=== PATIENT | female | born 1970 | race Caucasian/White ===

== ENCOUNTER 2018-04-05 11:58 | Outpatient (CLI) | payer OTHER, SELFPAY ==
--- NOTE | 2018-04-05 10:25 | DI.RAD_ITS ---
SYMPTOM/DIAGNOSIS: RT FOOT PAIN, M79.671, POSTERIOR HEEL PAIN RIGHT FOOT: Three views. No bone or joint abnormality is identified. There are small spurs seen at the posterior calcaneus. No radiopaque foreign bodies are seen in the soft tissues. IMPRESSION: Small calcaneal spurs.
== END 2018-04-05 12:18 ==
PROVIDERS: PCP Nurse Practitioner Family; Visit Provider Podiatrist Foot & Ankle Surgery
DX: M79.671 Pain in right foot (principal); M77.31 Calcaneal spur, right foot
CPT/HCPCS: 73630

== ENCOUNTER 2019-01-15 15:48 | Outpatient (REF) | payer OTHER, SELFPAY ==
[2019-01-15 18:25] LABS: ALT 45 U/L (12-78); AST 31 U/L (15-37); Albumin 3.9 g/dL (3.4-5.0); Alkaline Phosphatase 76 U/L (46-116); Anion Gap 12.3 mmol/L (3-11); BUN 12 mg/dL (7-18); Bilirubin, Total 0.2 mg/dL (0.2-1.0); CO2 25.7 mmol/L (21.0-32.0); CREATININE 0.84 mg/dL (0.55-1.02); Calcium 9.5 mg/dL (8.5-10.1); Chloride 102 mmol/L (98-107); Glucose 119 mg/dL (70-100); Potassium 3.8 mmol/L (3.5-5.1); Sodium 140 mmol/L (136-145); TSH (W/Ref FT4) 1.86 uIU/mL (0.358-3.74); Total Protein 7.4 g/dL (6.4-8.2)
== END 2019-01-15 16:08 ==
LOC: NCHCN 15:48
PROVIDERS: PCP Nurse Practitioner Family; Visit Provider Nurse Practitioner Family
DX: E03.9 Hypothyroidism, unspecified (principal); Z00.00 Encounter for general adult medical examination without abnormal findings; E78.5 Hyperlipidemia, unspecified
CPT/HCPCS: 80053; 84443

== ENCOUNTER 2019-04-30 10:40 | Outpatient (CLI) | payer OTHER, SELFPAY ==
--- NOTE | 2019-04-30 10:00 | DI.RAD_ITS ---
EXAM: XR SHOULDER LT COMPLETE 2+V INDICATION: SHOULDER INJURY/PAIN. COMPARISON: No exams were available for comparison TECHNIQUE: 2D digital imaging was performed. FINDINGS: There is mild spurring at the AC joint and tip of the acromion. The glenohumeral joint space is well maintained. IMPRESSION: Mild degenerative changes of the AC joint.
== END 2019-04-30 11:00 ==
PROVIDERS: PCP Nurse Practitioner Family; Visit Provider Student in an Organized Health Care Education/Training Program
DX: M25.512 Pain in left shoulder (principal); M19.012 Primary osteoarthritis, left shoulder
CPT/HCPCS: 73030

== ENCOUNTER 2019-06-14 06:14 | Day surgery (SDC) | payer OTHER, SELFPAY ==
[2019-06-14] VITALS (8 sets, daily range): BP systolic 109–142; BP diastolic 40–80; PULSE 80–87; RESP 15–23; TEMP 36.4–37; O2SAT 93–99
[2019-06-14] MEDS: Lactated Ringers 1,000 ML 100 ML IV (07:00)
[2019-06-14] MEDS: Bupivacaine LIPOSOME/PF 133 MG/10 ML VIAL IJ (07:14)
[2019-06-14] MEDS: Bupivacaine 0.5% Pres-Free 30 ML VIAL (07:14)
[2019-06-14] MEDS: ceFAZolin 3,000 MG in Normal Saline 100 ML 200 MG IVPB (07:36)
[2019-06-14] MEDS: EPINEPHrine 30 MG/30 ML VIAL (09:14)
--- NOTE | 2019-06-14 09:43 | PDOC.DSDIS_ITS ---
Discharge Plan Disposition Patient Disposition: HOME Condition: Stable Discharge Details Reason For Visit: Left shoulder surgery Attending Provider: Сергей Hahn Primary Care Provider: Ryley Hernandez Home Meds and New Rx's Prescriptions: New naproxen 250 mg tablet 250 mg PO BID PRN (Reason: pain, moderate) Qty: 60 RF: 0 aspirin 81 mg tablet,delayed release (DR/EC) 81 mg PO DAILY Qty: 30 RF: 0 ondansetron 4 mg tablet,disintegrating 4 mg PO Q6H PRN (Reason: nausea and vomiting) Qty: 5 RF: 0 oxycodone 5 mg tablet 5 mg PO Q4H PRN (Reason: pain, severe) Qty: 22 RF: 0 Continued fexofenadine-pseudoephedrine [Jennifer-D 12 Hour] 1 EACH tablet extended release 12 hr 1 tab PO BID PRN RF: 0 Fish Oil 1 EACH capsule 2 ea PO HS RF: 0 CENTRUM TABLET 1 EACH tablet 1 ea PO DAILY RF: 0 levothyroxine 112 MCG tablet 224 mcg PO DAILY Qty: 60 RF: 11 Discharge Instructions Additional Instructions: Surgery: Shoulder arthroscopy with biceps tenodesis Activity: Encourage full active use of shoulder, elbow, wrist, and hand for activities of daily living. Limit biceps flexion to no more than the weight of a cup of coffee for the first 4 weeks. Perform daily shoulder stretches and elbow, wrist, and hand range of motion. You may use the sling whenever you are out of the house for the first 2-4 weeks. You may have to adjust the abduction pillow or remove it for comfort. At home it is best to remove the sling and rest the arm on a pillow at your side or support the operative side with your other hand. You may allow the arm to dangle at your side. A physical therapy prescription will be provided separately. Prescriptions: Aspirin 81 mg take 1 daily to prevent a blood clot Naproxen 250 mg take 1-2 every 12 hours with a meal as needed for moderate pain Oxycodone 5 mg take 1-2 every 4-6 hours as needed for severe pain You may use [id number] Tylenol (acetaminophen) as needed for mild pain. These pain medications may be taken all at once or in different combinations as needed. Also, recommend Colace (docusate) as a stool softener as surgery and pain medicine cause constipation. Dressings: Leave dressing in place for 2-3 days. May then remove and leave open to air or cover incisions with Band-Aids. Sutures will be removed in the office. May shower after 5 days. Follow-up: 10-[address] Hahn Please call the office during business hours with any questions or concerns. Let us know right away if you develop any redness, drainage, fevers, chest pain, or trouble breathing. Do not drink alcohol or drive for at least 24 hours after anesthesia. Referrals: Сергей Hahn MD [ [facility] STAFF PHYSICIAN] - Discharge Orders Discharge Orders: Discharge Order (Routine); Ordered 06/14/19 Ordered By: Сергей Hahn DS: Diagnosis Discharge Diagnosis (1) Tendinitis of long head of biceps brachii of left shoulder: Status: Acute (2) Left rotator cuff tear: Status: Acute (3) Impingement syndrome of left shoulder: Status: Acute (4) Bursitis of left shoulder: Status: Acute
--- NOTE | 2019-06-14 09:51 | W.PM.OP ---
Date of service: 06/14/19 Time of Service: 09:44 Operative Note Operative Note DATE OF PROCEDURE: 06/14/19 PRE-OP DIAGNOSIS: Left: 1. Rotator cuff tear 2. LHB tendinopathy 3. Bursitis 4. Impingement POST-OP DIAGNOSIS: other Left: 1. Rotator cuff tear: small articular sided fraying/ PASTA lesion 2. LHB tendinopathy 3. Bursitis 4. Impingement 5. SLAP tear PROCEDURE: Left: 1. Extensive debridement, CPT# 89229. This involved using arthroscopic hand instruments, power instruments, and radiofrequency instruments to debride areas of labral tearing, synovitis, and chondromalacia within the glenohumeral joint anteriorly and posteriorly. Articular sided rotator cuff debridement of frayed PASTA lesion. 2. Arthroscopic biceps tenodesis, CPT# 74716. This involved reattaching the long head of the biceps tendon to the proximal humerus arthroscopically to the superior margin of the bicipital groove at the correct tension. 3. Subacromial decompression with partial acromioplasty, CPT# 76288. This involved using arthroscopic power instruments and a radiofrequency wand to complete a bursectomy and remove bone spurs on the undersurface of the acromion. The marketing administrative assistant was medically required in order to help assist in techniques above, which require positioning the arm, holding the arthroscope, and manipulating 2 to 4 instruments and sutures at the same time. This cannot be done without the help of an experienced marketing administrative assistant. SURGEON: Сергей Hahn [employer] COURTESY CLERK: Claribel Corea ANESTHESIA: GETA and regional ESTIMATED BLOOD LOSS: 15 PATHOLOGY: none sent COMPLICATIONS: None Patient was transported to: PACU Patient's condition: stable Implants: Arthrex: 4.75mm SwiveLocks x 1 Indications: The patient was diagnosed with the above conditions and appropriately indicated for surgical intervention. Please see complete medical record for details. Findings: Exam under anesthesia: Full, symmetrical range of motion; no instability Glenohumeral joint: Disruption of the biceps sling with subluxation of the biceps. Significant SLAP lesion and biceps inflammation. Chondromalacia adjacent to the area of disrupted biceps sling. Significant anterior more than posterior synovitis. Small, less than 5% articular sided supraspinatus footprint fraying mostly anterior. Subacromial space: Extensive, significant bursitis. Subacromial bone spur beneath the CA ligament. Intact bursal rotator cuff. Procedure Description: The patient was taken to the operating room and transferred to the operating room table. General anesthesia was induced. While under anesthesia, bilateral shoulders were examined. The patient was positioned in the beachchair position. All bony prominences were well-padded. Preoperative antibiotics were administered. The shoulder was prepped and draped in the usual sterile fashion. The correct patient, procedure, and side of the procedure were all verified prior to incision. Starting through the posterior portal a standard complete diagnostic arthroscopy was performed of the glenohumeral joint including inspection of the long head of the biceps, anterior and superior labrum, subscapularis tendon, supraspinatus and infraspinatus tendons, and axillary recess. The glenoid and humeral head cartilage as well as the posterior labrum were inspected from an anterior viewing portal. Significant findings noted above. An arthroscopic loop and tach technique was used to tenodesis the long head of the biceps tendon. This involved passing a suture tape fiber link suture around the biceps tendon cinching it securely and then passed it through the substance of the tendon retrieving the free. The long head of the biceps tendon was secured to a 4.75 mm swivel lock at the superior margin of the bicipital groove lateral to the subscapularis and lesser tuberosity. The biceps sling, anterior superior and posterior labral tearing, small anterior articular sided rotator cuff fraying, and chondromalacia adjacent to the disrupted biceps sling were all debrided using radiofrequency instruments. The biceps was tested through range of motion and found to be securely anchored. The small PASTA lesion was tested and there was no elevation of the rotator cuff of the greater tuberosity footprint. Starting through the posterior portal, the arthroscope was directed into the subacromial space. A lateral 50 yard line lateral portal was created. A combination of power instruments and a radiofrequency ablator were used to debride bursitis anteriorly, posteriorly, and laterally as well as expose and smooth bone spurring on the undersurface of the acromion. The coracoacromial ligament was released. The bursectomy was completed viewing laterally and working from posteriorly and the rotator cuff was thoroughly inspected with findings noted above. The shoulder was drained of arthroscopic fluid. All portal sites were copiously irrigated. These incisions were closed using 3-0 nylon in a portal saldkz-zt-ilbal fashion, covered with Xeroform, dry gauze, and ABDs. The dressings were covered and secured with foam tape. The operative extremity was placed into a sling for immobilization. The patient awoke from anesthesia without complication and was transferred to the recovery room in a stable condition.
== END 2019-06-14 12:29 | disposition home or self-care (01) ==
PROVIDERS: PCP Nurse Practitioner Family; Visit Provider Student in an Organized Health Care Education/Training Program
PROC: (CPT 29805; principal; 2019-06-14 07:30)
PROC: (CPT 23430; 2019-06-14 07:30)
DX: S46.012A Strain of muscle(s) and tendon(s) of the rotator cuff of left shoulder, initial encounter (principal); M75.22 Bicipital tendinitis, left shoulder; M75.42 Impingement syndrome of left shoulder; M75.52 Bursitis of left shoulder; S43.432A Superior glenoid labrum lesion of left shoulder, initial encounter; M94.212 Chondromalacia, left shoulder; G89.18 Other acute postprocedural pain; E66.9 Obesity, unspecified; Z68.43 Body mass index [BMI] 50.0-59.9, adult; W00.0XXA Fall on same level due to ice and snow, initial encounter
CPT/HCPCS: 29828; 29826; 29823; 76942; J0690; J1100; J1885; J2250; J2370; J2405

== ENCOUNTER 2019-08-20 10:36 | Outpatient (CLI) | payer OTHER, SELFPAY ==
--- NOTE | 2019-08-20 08:44 | DI.RAD_ITS ---
EXAM: XR FINGER LT INDEX INDICATION: CAT BITE OF L INDEX FINGER. COMPARISON: No exams were available for comparison TECHNIQUE: 2D digital imaging was performed. FINDINGS: No foreign body or abnormal gas collection is seen. There is no evidence of fracture. There are mil d degenerative changes of the distal interphalangeal joint. IMPRESSION: No acute abnormality.
== END 2019-08-20 10:56 ==
PROVIDERS: PCP Nurse Practitioner Family; Visit Provider Student in an Organized Health Care Education/Training Program
DX: S61.251A Open bite of left index finger without damage to nail, initial encounter (principal); W55.01XA Bitten by cat, initial encounter; M19.042 Primary osteoarthritis, left hand
CPT/HCPCS: 73140

== ENCOUNTER 2020-04-09 14:24 | Outpatient (REF) | payer OTHER, SELFPAY ==
[2020-04-09 18:45] LABS: HGB 14.4 g/dL (11.2-15.7); MCH 29.6 pg (27.0-33.0); MCV 92.4 fL (80-95); MPV 11.6 fL (8.0-11.0); Platelet Count 251 10^3/uL (130-400); RBC 4.87 10^6/uL (3.93-5.22); RDW 12.4 % (11.7-14.6); RDW-SD 42.2 fL; WBC 11.11 10^3/uL (4.4-10.8)
[2020-04-09 19:02] LABS: TSH (W/Ref FT4) 2.68 uIU/mL (0.36-3.74)
== END 2020-04-09 14:44 ==
LOC: NCHCN 14:24
PROVIDERS: PCP Nurse Practitioner Family; Visit Provider Nurse Practitioner Family
DX: E03.9 Hypothyroidism, unspecified (principal); R53.83 Other fatigue
CPT/HCPCS: 85027; 84443

== ENCOUNTER 2021-04-13 13:04 | Outpatient (REF) | payer OTHER, SELFPAY ==
[2021-04-13 20:32] LABS: ALT 36 U/L (14-59); AST 25 U/L (15-37); Albumin 4.1 g/dL (3.4-5.0); Alkaline Phosphatase 68 U/L (46-116); Anion Gap 7.3 mmol/L (3-11); BUN 14 mg/dL (7-18); Bilirubin, Total 0.3 mg/dL (0.2-1.0); CO2 30.7 mmol/L (21.0-32.0); CREATININE 0.9 mg/dL (0.55-1.02); Calcium 9.3 mg/dL (8.5-10.1); Calculated LDL 175 mg/dL (<100); Chloride 102 mmol/L (98-107); Cholesterol 268 mg/dL (<200); Glucose 95 mg/dL (74-106); HDL Cholesterol 52 mg/dL (40-60); Potassium 4.5 mmol/L (3.5-5.1); Sodium 140 mmol/L (136-145); TSH (W/Ref FT4) 5.45 uIU/mL (0.36-3.74); Total Protein 7.9 g/dL (6.4-8.2); Triglyceride 208 mg/dL (<150)
[2021-04-13 21:02] LABS: FREE T4 1.07 ng/dL (0.76-1.46)
== END 2021-04-13 13:05 | disposition home or self-care (01) ==
LOC: NCHCN 13:04
PROVIDERS: PCP Nurse Practitioner Family; Visit Provider Nurse Practitioner
DX: E03.9 Hypothyroidism, unspecified (principal); E78.5 Hyperlipidemia, unspecified
CPT/HCPCS: 80053; 80061; 84439; 84443

== ENCOUNTER 2021-08-16 03:34 | Outpatient (CLI) | payer BC, SELFPAY ==
[2021-08-16 09:35] LABS: TSH (W/Ref FT4) 1.67 uIU/mL (0.36-3.74)
== END 2021-08-16 03:35 | disposition home or self-care (01) ==
LOC: LBO 03:35
PROVIDERS: PCP Family Medicine; Visit Provider Family Medicine
DX: E03.9 Hypothyroidism, unspecified (principal)
CPT/HCPCS: 36415; 84443

== ENCOUNTER 2021-09-29 17:29 | Outpatient (REF) | payer BC, SELFPAY | END 2021-09-29 17:30 | disposition home or self-care (01) | LOC: LBN 17:29 | PROVIDERS: PCP Family Medicine; Visit Provider Family Medicine | DX: R31.9 Hematuria, unspecified (principal) | CPT/HCPCS: 87086 ==

== ENCOUNTER 2022-05-12 03:46 | Outpatient (CLI) | payer BC, SELFPAY ==
[2022-05-12 08:50] LABS: CREATININE 0.9 mg/dL (0.55-1.02); Calculated LDL 169 mg/dL (<100); Cholesterol 263 mg/dL (<200); HDL Cholesterol 56 mg/dL (40-60); Triglyceride 194 mg/dL (<150)
[2022-05-12 09:36] LABS: FREE T4 1.16 ng/dL (0.76-1.46)
== END 2022-05-12 03:47 | disposition home or self-care (01) ==
PROVIDERS: PCP Family Medicine; Visit Provider Registered Nurse Maternal Newborn
DX: H90.3 Sensorineural hearing loss, bilateral (principal); E03.9 Hypothyroidism, unspecified; M25.511 Pain in right shoulder
CPT/HCPCS: 36415; 80061; 82565; 84439; 84443

== ENCOUNTER 2022-05-24 13:47 | Outpatient (CLI) | payer BC, SELFPAY ==
--- NOTE | 2022-05-24 13:00 | DI.RAD_ITS ---
Exam(s) XR SHOULDER RT COMPLETE 2+V EXAM: XR SHOULDER RT COMPLETE 2+V CLINICAL HISTORY: R shoulder pain. TECHNIQUE: 2D digital imaging was performed. COMPARISON: CR XR SHOULDER LT COMPLETE 2+V from 04/30/2019 FINDINGS: Two views: No evidence of fracture nor dislocation or abnormal soft tissue calcifications. Subacromial space is not diminished. No obvious degenerative changes in the glenohumeral joint. No osseous lesions. Emir ne density normal. IMPRESSION: No significant osseous findings. DATA REPOSITORY: RADIATION DOSE DELIVERED:
== END 2022-05-24 13:48 | disposition home or self-care (01) ==
LOC: DIORS 13:47
PROVIDERS: PCP Family Medicine; Referring Provider Family Medicine; Visit Provider Physician Assistant
DX: M25.511 Pain in right shoulder (principal)
CPT/HCPCS: 73030

== ENCOUNTER → 2022-06-06 03:21 | Outpatient (CLI) | payer BC, SELFPAY ==
--- NOTE | 2022-06-06 07:30 | DI.MRI_ITS ---
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 TECHNIQUE: Multiplanar multisequence MRI of the brain and internal auditory canals was performed. CONTRAST MATERIAL: IV Contrast: 20 mL of Magnevist contrast administered. COMPARISON: No exams were available for comparison FINDINGS: VENTRICLES AND EXTRA AXIAL SPACES: Normal in size and morphology for the patient's age. HEMORRHAGE: None. CEREBRAL PARENCHYMA: No focus of restricted diffusion to suggest acute infarct. No space-occupying le anatoliy identified. MIDLINE SHIFT: None. CEREBELLUM: Normal. VISUALIZED PARANASAL SINUSES/: Clear. Mastoid air cells: Small amount of fluid is seen in the left mastoid air cells. No evidence of mass or bony destruction. The vascular flow voids appear intact. IAC/CP ANGLE: There is a mass at the right cerebellopontine angle which appears smoothly marginated a nd extends into the internal auditory canal. The it shows marked enhancement. The findings are cons istent for acoustic schwannoma. It measures 2.2 cm transverse by 1.4 cm AP by 1.4 cm cephalo caudad. No additional abnormal enhancing lesions are seen elsewhere in the brain. The cochlea and semi circular canals appear normal. 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 Mild amount of fluid is seen in the left mastoid air cells. DATA REPOSITORY:
[2022-06-06] MEDS: Normal Saline Flush 10 ML SYR IVP (13:53)
== END ==
PROVIDERS: PCP Family Medicine; Visit Provider Registered Nurse Maternal Newborn
DX: H90.3 Sensorineural hearing loss, bilateral (principal); H93.19 Tinnitus, unspecified ear; D33.3 Benign neoplasm of cranial nerves
CPT/HCPCS: 70553

== ENCOUNTER 2022-06-15 01:52 | Outpatient (CLI) | payer BC, SELFPAY ==
--- NOTE | 2022-06-15 07:30 | DI.MAMMO_ITS ---
Exam(s) MAMMO SCREENING EXAM: MAMMO SCREENING CLINICAL HISTORY: screening,z12.39 TECHNIQUE: Bilateral full field digital CC and MLO mammographic images were obtained with 3D tomosyn thesis and utilizing computer aided detection (CAD). COMPARISON: Available for comparison. FINDINGS: Masses/Architectural Distortion: None seen. Microcalcifications: No suspicious pleomorphic-type are seen. Skin Thickening/Nipple Retraction: None. IMPRESSION: 1. No significant interval change with no specific features of malignancy noted. 2. Unless there is more urgent need, screening mammography is recommended, as per [place] [employer] guidelines. BI-RADS Category 1 - Negative Breast Density - Category B - Scattered areas of fibroglandular density Breast density category C or D implies that the patient has dense breast tissue. Dense breast tissue is very common and is not abnormal but dense breast tissue can make it harder to find cancer on a ma mmogram. Also, dense breast tissue may increase their breast cancer risk. This information about the result of the mammogram report was provided to the patient to raise their awareness. Use this report when you speak with the patient about their risks for breast cancer, which includes their family hist ory. At that time, you may recommend for more screening tests (Ultrasound or MRI) as they might be us eful based on their risk. A negative radiographic report should not delay biopsy if a dominant or clinically suspicious mass is present. Up to ten percent of cancers are not identified on mammography. A negative report may reinforce clinical impression. Adenosis and dense breasts may obscure an underlying neoplasm. False positive reports average 6 to 10%. Patient will receive a letter notifying them of these results.
== END 2022-06-15 02:12 ==
LOC: DI 01:52
PROVIDERS: PCP Family Medicine; Visit Provider Family Medicine
DX: Z12.31 Encounter for screening mammogram for malignant neoplasm of breast (principal)
CPT/HCPCS: 77063; 77067

== ENCOUNTER 2022-10-26 13:38 | Outpatient (CLI) | payer BC, SELFPAY ==
--- NOTE | 2022-10-26 13:30 | RT.EKG_ITS ---
APPROVED REPORT Exam: Resting ECG Reason for Exam: pre op clearance Patient Location: O HR:87 bpm ECG Measurements Heart Rate 87 AXIS MD 186 P 38 QRSd 109 QRS -56 QT 369 T 87 QTc 444 Conclusion Sinus rhythm...normal P axis, V-rate 50- 99 Probable left atrial enlargement...P >50mS, <-0.10mV V1 Left anterior fascicular block...axis(240,-40), init forces inf Abnormal R-wave progression, late transition...QRS area<0 in V5/V6 LVH with secondary repolarization abnormality...multi-LVH criteria, abnrm ST-T
== END 2022-10-26 13:39 | disposition home or self-care (01) ==
LOC: DI.CM 13:38
PROVIDERS: PCP Family Medicine; Visit Provider Family Medicine
DX: Z01.818 Encounter for other preprocedural examination (principal); I44.4 Left anterior fascicular block; I42.2 Other hypertrophic cardiomyopathy; R00.8 Other abnormalities of heart beat
CPT/HCPCS: 93010

== ENCOUNTER 2022-11-07 01:18 | Outpatient (CLI) | payer BC, SELFPAY ==
--- NOTE | 2022-11-07 14:41 | DI.US_ITS ---
APPROVED REPORT EXAM: Comprehensive 2D, Doppler, and color-flow Echocardiogram Patient Location: Out-Patient Jowl Trimmer: Jane Cisneros RDCS (AE) Indications: Abnormal EKG, Pre operative exam for brain surgery Other Information Study Quality: Fair. Technically limited study due to body habitus exam done supine. Conclusion Normal left ventricular wall thickness and chamber size. Ejection fraction is 55%. Wall motion is n ormal Normal right ventricular size and systolic function Both atria are normal in size There is no structural or hemodynamically significant valvular disease Estimated right ventricular systolic pressure is 25 mmHg Mildly dilated ascending aorta 3.44 cm Wall motion Left Ventricle The left ventricle is normal size. Left ventricular systolic function is borderline. There is zenon l left ventricular wall thickness. There is normal LV segmental wall motion. There is no ventricular septal defect visualized. LVEF is 55%. Right Ventricle The right ventricle is normal size. The RVSP is 24.7_ mmHg. Atria The left atrium size is normal. The right atrium size is normal. The interatrial septum is intact wit h no evidence for an atrial septal defect. Aortic Valve The aortic valve is normal in structure. Aortic valve is probably trileaflet. There is no aortic valv ular stenosis. No aortic regurgitation is present. Mitral Valve The mitral valve is normal in structure. No evidence of mitral valve stenosis. Trace mitral regurgita tion. Tricuspid Valve The tricuspid valve is normal in structure. There is no tricuspid valve stenosis. Trace tricuspid reg urgitation. Pulmonic Valve The pulmonary valve is normal in structure. There is no pulmonic valvular stenosis. Trace pulmonic re gurgitation. Great Vessels The aortic root is normal in size. The ascending aorta is mildly dilated. Aortic arch is not well vi sualized. IVC is normal in size and collapses >50% with inspiration. Pericardium There is no pericardial effusion. 2D Dimensions IVSD d PLAX 1.00 cm F: 0.6-1.0 LV Vol A2C d MOD 125.2 mL LVPW d PLAX 0.99 cm F: 0.6 - 1.0 LV Vol A4C d MOD 132.0 mL LVID d PLAX 4.78 cm F: 3.8 - 5.2 LA vol/ BSA A2C s A-L 16.5 mL/m2 LVDs 3.65 cm F: 2.2 - 3.5 LA vol/ BSA A4C s A-L 24.9 mL/m2 Ao Root d 3.49 cm F: 2.7 - 3.3 LA Vol/ BSA Biplane s A-L 22.8 mL/m2 Ao Asc Diam d 3.44 cm F: 2.3 - 3.1 LA Area A4C s MOD 21.36 cm2 LV EF Teichholz 47.1 % LA Area A2C s MOD 15.41 cm2 LVEF (Gomes's) 53.88 % F: 54 - 74 LV EF A4C MOD 52.9 % LV Volume 90.55 mL F: 46 - 106 LV EF A2C MOD 54.3 % LV Volume Index 35.50 mL/m2 F: 29 - 61 LV EF Biplane MOD 53.9 % LV Vol Biplane MOD 130.1 mL SV 70.11 mL FS 23.60 % SV Index 27.47 mL/m2 M-Mode TAPSE 2.95 cm (M/F) >1.7 LV Diastology MV E' medial 0.088 (>0.07 m/s) MV E' lateral 0.127 (>0.1 m/s) Aortic Valve LVOT Area 3.38 cm2 AoV Area Vmax 3.00 cm2 LVOT Vmax 1.19 m/s AoV Area/ BSA (Vmax) 1.17 cm2/m2 LVOT Mean Kaleb. 0.73 m/s NENA Mean Kaleb. 2.58 cm2 LVOT Peak Grad 5.6 mmHg NENA Mean Kaleb. Index 1.01 cm2/m2 LVOT Mean Grad 2.5 mmHg LVOT VTI 0.242 m LVOT Diam s 2.05 cm AoV Vmax 1.34 m/s Velocity Ratio 0.89 AoV Mean Kaleb. 0.95 m/s AoV Peak Grad 7.1 mmHg LVOT SV 81.70 mL AoV Mean Grad 4.1 mmHg AoV VTI 0.248 m AoV Area VTI 3.29 cm2 AoV Area/ BSA (VTI) 1.29 cm/m2 Mitral Valve MV VTI 0.219 m MV Area VTI 3.73 (4.0-6.0 cm2) Pulmonary Valve PV Vmax 1.02 (0.5-1.5 m/s) RVOT Peak Gr. 2.06 mmHg PV Peak Grad 4.1 mmHg RVOT Mean Gr. 1.10 mmHg PV Mean Grad 2.4 mmHg RVOT VTI 0.119 m PV VTI 0.215 m RVOT Vmax 0.72 m/s Tricuspid Valve TR Peak Grad 21.6 mmHg TR Vmax 2.33 m/s RA Pressure 3.00 mmHg RVSP (TR) 24.7 mmHg
== END 2022-11-07 01:38 ==
PROVIDERS: PCP Family Medicine; Visit Provider Family Medicine
DX: D33.3 Benign neoplasm of cranial nerves (principal); R94.31 Abnormal electrocardiogram [ECG] [EKG]
CPT/HCPCS: 93306

== ENCOUNTER 2022-11-07 02:27 | Outpatient (CLI) | payer BC, SELFPAY ==
[2022-11-07 15:48] LABS: FREE T4 1.14 ng/dL (0.76-1.46); TSH 2.13 uIU/mL (0.36-3.74)
== END 2022-11-07 02:28 | disposition home or self-care (01) ==
LOC: LBO 02:27
PROVIDERS: PCP Family Medicine; Visit Provider Internal Medicine Endocrinology, Diabetes & Metabolism
DX: E03.9 Hypothyroidism, unspecified (principal)
CPT/HCPCS: 36415; 84439; 84443

== ENCOUNTER 2023-04-28 02:04 | Outpatient (CLI) | payer BC, SELFPAY ==
[2023-04-28 12:22] LABS: Calculated LDL 157 mg/dL (<100); Cholesterol 242 mg/dL (<200); HDL Cholesterol 49 mg/dL (40-60); Triglyceride 183 mg/dL (<150)
[2023-04-28 12:34] LABS: Hemoglobin A1C 6.1 % (<5.7)
[2023-05-01 09:38] LABS: Hepatitis C Ab w Rflx HCV PCR Negative (Negative)
== END 2023-04-28 02:05 | disposition home or self-care (01) ==
LOC: LOS 02:04
PROVIDERS: PCP Family Medicine; Visit Provider Family Medicine
DX: Z00.00 Encounter for general adult medical examination without abnormal findings (principal); R73.01 Impaired fasting glucose; Z13.6 Encounter for screening for cardiovascular disorders
CPT/HCPCS: 36415; 80061; 86803; 83036

== ENCOUNTER 2023-05-05 04:39 | Outpatient (CLI) | payer BC, SELFPAY ==
[2023-05-05 12:32] LABS: Anion Gap 7.2 mmol/L (3-11); BUN 15 mg/dL (7-18); CO2 28.8 mmol/L (21.0-32.0); CREATININE 0.9 mg/dL (0.55-1.02); Calcium 9.6 mg/dL (8.5-10.1); Chloride 102 mmol/L (98-107); Estimated GFR 76.92 (mL/min/1.73m2); Glucose 140 mg/dL (74-106); Sodium 138 mmol/L (136-145)
== END 2023-05-05 04:40 | disposition home or self-care (01) ==
LOC: LOS 04:40
PROVIDERS: PCP Family Medicine; Visit Provider Family Medicine
DX: E11.9 Type 2 diabetes mellitus without complications (principal); I10 Essential (primary) hypertension
CPT/HCPCS: 36415; 80048

== ENCOUNTER → 2023-06-19 02:04 | Outpatient (CLI) | payer BC, SELFPAY ==
--- NOTE | 2023-06-19 08:15 | DI.MAMMO_ITS ---
Exam(s) MAMMO SCREENING EXAM: MAMMO SCREENING CLINICAL HISTORY: screening,Z12.39 TECHNIQUE: Bilateral full field digital CC and MLO mammographic images were obtained with 3D tomosyn thesis and utilizing computer aided detection (CAD). COMPARISON: Available for comparison. FINDINGS: Masses/Architectural Distortion: None seen. Microcalcifications: No suspicious pleomorphic-type are seen. Skin Thickening/Nipple Retraction: None. IMPRESSION: 1. No significant interval change with no specific features of malignancy noted. 2. Unless there is more urgent need, screening mammography is recommended, as per [employer] guidelines. BI-RADS Category 1 - Negative Breast Density - Category B - Scattered areas of fibroglandular density Breast density category C or D implies that the patient has dense breast tissue. Dense breast tissue is very common and is not abnormal but dense breast tissue can make it harder to find cancer on a ma mmogram. Also, dense breast tissue may increase their breast cancer risk. This information about the result of the mammogram report was provided to the patient to raise their awareness. Use this report when you speak with the patient about their risks for breast cancer, which includes their family hist ory. At that time, you may recommend for more screening tests (Ultrasound or MRI) as they might be us eful based on their risk. A negative radiographic report should not delay biopsy if a dominant or clinically suspicious mass is present. Up to ten percent of cancers are not identified on mammography. A negative report may reinforce clinical impression. Adenosis and dense breasts may obscure an underlying neoplasm. False positive reports average 6 to 10%. Patient will receive a letter notifying them of these results.
== END ==
PROVIDERS: PCP Family Medicine; Visit Provider Family Medicine
DX: Z12.31 Encounter for screening mammogram for malignant neoplasm of breast (principal)
CPT/HCPCS: 77063; 77067

== ENCOUNTER 2023-12-14 05:08 | Outpatient (CLI) | payer BC, SELFPAY ==
[2023-12-14 16:04] LABS: Hemoglobin A1C 5.3 % (<5.7)
[2023-12-14 16:32] LABS: ALT 49 U/L (14-59); AST 23 U/L (15-37); Albumin 3.9 g/dL (3.4-5.0); Alkaline Phosphatase 72 U/L (46-116); BUN 14 mg/dL (7-18); Bilirubin, Total 0.3 mg/dL (0.2-1.0); CREATININE 0.9 mg/dL (0.55-1.02); Calcium 9.4 mg/dL (8.5-10.1); Calculated LDL 117 mg/dL (<100); Chloride 102 mmol/L (98-107); Cholesterol 220 mg/dL (<200); Estimated GFR 76.92 (mL/min/1.73m2); Glucose 103 mg/dL (74-106); HDL Cholesterol 50 mg/dL (40-60); Potassium 4.4 mmol/L (3.5-5.1); Sodium 140 mmol/L (136-145); TSH (W/Ref FT4) 0.16 uIU/mL (0.36-3.74); Total Protein 7.3 g/dL (6.4-8.2); Triglyceride 265 mg/dL (<150)
[2023-12-14 16:51] LABS: COMMENT (LAB VIEW ONLY) 124.88 mg/dL; Microalb ug/mg Crea 8.6 ug/mg Cr
[2023-12-14 17:07] LABS: FREE T4 1.33 ng/dL (0.76-1.46)
== END 2023-12-14 05:09 | disposition home or self-care (01) ==
LOC: LBO 05:09
PROVIDERS: PCP Family Medicine; Visit Provider Family Medicine
DX: E03.9 Hypothyroidism, unspecified (principal); E11.9 Type 2 diabetes mellitus without complications
CPT/HCPCS: 36415; 80053; 80061; 82043; 82570; 83036; 84439; 84443

== ENCOUNTER 2024-03-08 01:32 | Outpatient (CLI) | payer BC, SELFPAY ==
[2024-03-08 13:33] LABS: Anion Gap 6.7 mmol/L (3-11); BUN 12 mg/dL (7-18); CO2 31.3 mmol/L (21.0-32.0); Calcium 9.6 mg/dL (8.5-10.1); Chloride 100 mmol/L (98-107); Estimated GFR 67.78 (mL/min/1.73m2); Glucose 99 mg/dL (74-106); Sodium 138 mmol/L (136-145); TSH (W/Ref FT4) 0.63 uIU/mL (0.36-3.74)
== END 2024-03-08 01:33 | disposition home or self-care (01) ==
PROVIDERS: PCP Family Medicine; Visit Provider Family Medicine
DX: I10 Essential (primary) hypertension (principal); E03.9 Hypothyroidism, unspecified
CPT/HCPCS: 36415; 80048; 84443

== ENCOUNTER 2024-05-03 11:22 | Outpatient (CLI) | payer BC, SELFPAY ==
--- NOTE | 2024-06-06 09:19 | W.CARDEVENT ---
Date of service: 06/06/24 Time of Service: 09:19 Cardiac Event Recorder Referring Provider:: Lulu Francois Indications:: Palpitations and syncope Cardiac Event Note: This is a cardiac event monitor. Patient was monitored for 29 days and 11 hours Predominant rhythm was sinus. Average heart rate overall was 83. Minimum was 58. Maximum was 141. There were rare ventricular ectopic beats. There were rare atrial premature beats. There was no atrial fibrillation, no high-grade AV block, no pauses greater than 3 seconds Several self-limited atrial runs occurred. 1 of these was 5 beats in duration and was associated with symptoms
== END 2024-05-03 11:23 | disposition home or self-care (01) ==
LOC: CARDOPNVT 11:22
PROVIDERS: PCP Family Medicine; Visit Provider Family Medicine
DX: R55 Syncope and collapse (principal); R00.2 Palpitations; I10 Essential (primary) hypertension; I49.1 Atrial premature depolarization
CPT/HCPCS: 93270

== ENCOUNTER 2024-06-24 02:34 | Outpatient (CLI) | payer BC, SELFPAY ==
--- NOTE | 2024-06-24 08:15 | DI.MAMMO_ITS ---
Exam(s) MAMMO SCREENING EXAM: MAMMO SCREENING CLINICAL HISTORY: screening,Z12.39 TECHNIQUE: Mammograms were interpreted according to the usual protocol including computer analysis w [employer] CAD system, tomosynthesis and C-view imaging. COMPARISON: 2016 through 2022 FINDINGS: The breasts are composed of scattered fibroglandular densities, Breast Density category B. No suspicious masses or suspicious microcalcifications are seen. No skin thickening or abnormal axillary lymph nodes are seen. There has been no significant change from prior exams. IMPRESSION: BI-RADS Category 1, Negative mammogram Yearly screening mammography is recommended. Breast Density - Category B, scattered fibroglandular densities. A negative radiographic report should not delay biopsy if a dominant or clinically suspicious mass is present. Up to ten percent of cancers are not identified on mammography. A negative report may reinforce clinical impression. Adenosis and dense breasts may obscure an underlying neoplasm. False positive reports average 6 to 10%. Patient will receive a letter notifying them of these results.
== END 2024-06-24 02:54 ==
LOC: DI 02:36
PROVIDERS: PCP Family Medicine; Visit Provider Family Medicine
DX: Z12.31 Encounter for screening mammogram for malignant neoplasm of breast (principal); R92.323 Mammographic fibroglandular density, bilateral breasts
CPT/HCPCS: 77063; 77067

== ENCOUNTER 2024-06-26 22:22 | Outpatient (REF) | payer BC, SELFPAY ==
[2024-06-26 23:18] LABS: TSH (W/Ref FT4) 0.83 uIU/mL (0.36-3.74); Vitamin B12 686 pg/mL (193-986)
== END 2024-06-26 22:23 | disposition home or self-care (01) ==
LOC: LBN 22:22
PROVIDERS: PCP Family Medicine; Visit Provider Family Medicine
DX: E03.9 Hypothyroidism, unspecified (principal); K13.0 Diseases of lips
CPT/HCPCS: 82607; 84443

== ENCOUNTER 2024-07-24 23:09 | Emergency (ER) | payer BC, SELFPAY ==
[2024-07-24] VITALS (9 sets, daily range): BP systolic 150–162; BP diastolic 59–79; PULSE 83–95; RESP 16–21; TEMP 36.8; O2SAT 95–100
--- NOTE | 2024-07-24 23:00 | RT.EKG_ITS ---
APPROVED REPORT Exam: Resting ECG Reason for Exam: syncope Patient Location: E HR:90 bpm ECG Measurements Heart Rate 90 AXIS PA 209 P 59 QRSd 115 QRS -59 QT 410 T 81 QTc 502 Conclusion Sinus rhythm...normal P axis, V-rate 60- 99 Probable left atrial enlargement...P >50mS, <-0.10mV V1 Left anterior fascicular block...axis(240,-40), init forces inf Left ventricular hypertrophy...multiple LVH criteria suspect computer calculated QT/QTc incorrect due to baseline artificat in lead II; by my assessemnt Q T 390-[address] segment or T wave abnormalities to suggest occlusive [place]
--- NOTE | 2024-07-24 23:48 | W.ED.GENAD ---
Discharge Plan Disposition Patient Disposition: Home Condition: Good Discharge Details Clinical Impression: Syncope, Situational syncope Primary Care Provider: Lulu Francois ED Provider: Becki Phelps Home Meds and New Rx's Prescriptions: Continued red yeast rice 600 mg capsule 600 mg PO DAILY Rx Instructions: give with meal/snack acetaminophen [Tylenol Arthritis Pain] 650 mg tablet extended release 650 mg PO QHS levothyroxine 125 mcg tablet 125 mcg PO DAILY Qty: 90 3RF mupirocin 2 % ointment 1 applic topical TID Qty: 15 0RF fexofenadine-pseudoephedrine [Jennifer-D 12 Hour] 1 EACH tablet extended release 12 hr 1 tab PO BID PRN Fish Oil 1 EACH capsule 2 ea PO HS CENTRUM TABLET 1 EACH tablet 1 ea PO DAILY metformin 500 mg tablet extended release 24 hr 500 mg PO DAILY Qty: 90 3RF bupropion HCl 150 mg tablet extended release 24 hr 150 mg PO QAM Qty: 90 3RF levothyroxine 100 mcg tablet 100 mcg PO DAILY Qty: 90 3RF hydrochlorothiazide 25 mg tablet 25 mg PO DAILY Qty: 90 3RF mirtazapine 15 mg tablet 15 mg PO QHS Qty: 90 3RF Discontinued acyclovir 5 % ointment 1 applic topical ONCE Patient Comments: APPLY OINTMENT TO AFFECTED AREA6 TIMES A DAY FOR 7 DAYS Discharge Instructions Instructions: Vasovagal Response, Fainting, Adult ED Additional Instructions: Call your primary care doctor in the morning to schedule an appointment for within the next 48 hours to followup on your visit here. Call your parking meter servicer in the morning to schedule an appointment for as soon as possible to followup on your visit here. return to the emergency department for new or worsening symptoms, including chest pain, shortness of breath, or if you pass out again or feel like you are going to pass out. Referrals: [facility] [Provider Group] Lulu Francois MD [Primary Care Provider] - [facility] General Mode of arrival: ambulatory. Date/Time Provider Initiated Documentation: 07/24/24 23:27. Limitations to Documentation: no limitations. Information obtained by: patient. HPI Narrative: 54yo F with hx HTN, T2DM, obesity, MENDEZ, hypothyroid, schwannoma s/p resection, presenting for facial lacerations and syncope. Had gotten out of bed to go to the toilet, while straining on the toilet felt lightheaded, sweaty, nauseated, and then her vision started to go dark and she passed out. Came to on the ground after a few seconds, had hit her face/forehead on the ground. Per her partner at the bedside she had some shaking of her head and possibly the rest of her body while she was unconscious (lLOC lasted less than a minute). When she woke up she knew where she was and who he was, but did seem a little out of it. Patient reports feeling tired after waking back up, but this has been improving. Currently has a mild headache and facial pain, otherwise feels back to normal. Did have 2 loose stools today, non-bloody. No chest pain or shortness of breath at any point. No neck pain, numbness, tingling, weakness, vertigo, vision changes, or vomiting. 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 No history of heart disease, heart attack, or stroke. Otherwise in her usual state of health with no fevers, chills, rash, abdominal pain, dysuria, hematuria, or other concerns. Related Data Home Medications ?Medication ?Instructions ?Recorded ?Confirmed Centrum Tablet 1 ea PO DAILY 10/18/12 07/24/24 fexofenadine 60 mg-pseudoephedrine 1 tab PO BID PRN 10/18/12 07/24/24 ER 120 mg tablet,ext.release,12 hr (Jennifer-D 12 Hour) omega-3 fatty acids-fish oil 340 2 ea PO HS 10/18/12 07/24/24 mg-1,000 mg capsule (Fish Oil) red yeast rice 600 mg capsule 600 mg PO DAILY 04/20/22 07/24/24 metformin 500 mg tablet,extended 500 mg PO DAILY #90 tabs 10/25/23 07/24/24 release 24 hr levothyroxine 125 mcg tablet 125 mcg PO DAILY #90 tabs 12/22/23 07/24/24 bupropion HCl 150 mg 24 hr tablet, 150 mg PO QAM #90 tabs 12/26/23 07/24/24 extended release acetaminophen 650 mg 650 mg PO QHS 04/24/24 07/24/24 tablet,extended release (Tylenol Arthritis Pain) hydrochlorothiazide 25 mg tablet 25 mg PO DAILY #90 tabs 06/04/24 07/24/24 levothyroxine 100 mcg tablet 100 mcg PO DAILY #90 tabs 06/04/24 07/24/24 mupirocin 2 % topical ointment 1 applic topical TID #15 grams 06/26/24 07/24/24 mirtazapine 15 mg tablet 15 mg PO QHS #90 tabs 07/23/24 07/24/24 Previous Rx's ?Medication ?Instructions ?Recorded metformin 500 mg tablet,extended 500 mg PO DAILY #90 tabs 10/25/23 release 24 hr levothyroxine 125 mcg tablet 125 mcg PO DAILY #90 tabs 12/22/23 bupropion HCl 150 mg 24 hr tablet, 150 mg PO QAM #90 tabs 12/26/23 extended release hydrochlorothiazide 25 mg tablet 25 mg PO DAILY #90 tabs 06/04/24 levothyroxine 100 mcg tablet 100 mcg PO DAILY #90 tabs 06/04/24 mupirocin 2 % topical ointment 1 applic topical TID #15 grams 06/26/24 mirtazapine 15 mg tablet 15 mg PO QHS #90 tabs 07/23/24 Allergies Allergy/AdvReac Type Severity Reaction Status Date / Time Penicillins Allergy Intermediate Hives Verified 07/24/24 23:31 amoxicillin Allergy rash Verified 07/24/24 23:31 amitriptyline AdvReac Mild nightmares Verified 07/24/24 23:31 General Stated Complaint: [id number] LEN: 3 Review of Systems Narrative: see HPI Exam Narrative Exam Narrative: GENERAL: Alert, no acute distress. SKIN: Warm and well perfused. Abrasion to bridge of nose. 2 small shallow linear hemostatic well approximated lacerations to upper lip, ~0.25 and ~0.75cm. No involvement of internal surface/mucousa HEAD: Echymois to right forehead. Right maxilla and right forehead mildly TTP, otherwise facial bones without deformities or tenderness. EYES: PERRL. No scleral icterus or conjunctival injection. Extraocular muscles intact without nystagmus or diplopia. No proptosis or enophthalmos. NOSE: No discharge, tenderness, laxity. No nasal septal hematoma. MOUTH: No malocclusion or trismus. Moist mucus membranes without blood. Posterior pharynx without erythema or exudate. NECK: Trachea midline. No discolorations or edema. Full pain free ROM with flexion, extension, and lateral rotation CV: Regular rate and rhythm, Normal s1 and s2. No murmurs, rubs, or gallops. PV: Radial pulses 2+ bilaterally and symmetric. 2+ capillary refill. No extremity edema. CHEST: Chest symmetric with respirations. No chest wall tenderness. Lungs are clear to auscultation bilaterally. ABDOMEN:. Soft, nondistended, nontender. BACK: No abrasions, skin openings, or ecchymosis. Spine without bony tenderness, no step offs. PELVIC: Pelvis stable, nontender to lateral compression MSK: No gross deformities or discolorations or lesions. TTP at anterior right shoulder, otherwise tolerates full range of motion of extremities without tenderness. NEURO: ? GCS 15.? PERRL.? EOMI.? Fluent speech, no dysarthria. Motor- 5/5 strength symmetric bilateral upper and lower extremities Sensation- ?Intact to light touch and symmetric multiple dermatomes including upper and lower extremities Coordination- No dysmetria on finger to nose Gait/station: ?Normal stance.? No truncal ataxia. Steady gait with equal normal steps CRANIAL NERVES: II: Pupils equal and reactive, III, IV, : EOM intact, no gaze preference or deviation, no nystagmus. V: normal sensation in V1, V2, and V3 segments bilaterally VII: no asymmetry, no nasolabial fold flattening VIII: normal hearing to speech IX, X: normal palatal elevation, no uvular deviation XI: 5/5 head turn and 5/5 shoulder shrug bilaterally XII: midline tongue protrusion Course Vital Signs Vital signs: Vital Signs Temperature 36.8 C 07/24/24 23:11 Pulse 95 H 07/24/24 23:11 Respiratory Rate 16 07/24/24 23:11 Blood Pressure 162/79 H 07/24/24 23:11 Pulse Oximetry 98 07/24/24 23:11 Temperature 36.8 C 07/24/24 23:11 Temperature Source Temporal Artery Scan 07/24/24 23:11 Pulse 95 H 07/24/24 23:11 Respiratory Rate 16 07/24/24 23:28 Respiratory Effort Normal 07/24/24 23:28 Respiratory Depth Normal 01/01/25 23:28 Respiratory Pattern Normal 07/24/24 23:28 Blood Pressure 162/79 H 07/24/24 23:11 Blood Pressure Position Sitting 07/24/24 23:11 Pulse Oximetry 98 07/24/24 23:11 Oxygen Delivery Method Room Air 07/24/24 23:11 Oxygen Flow Rate 0 07/24/24 23:11 Pain Level 8 07/24/24 23:11 Procedures Laceration Laceration 1: Site: face Size (cm): 0.25 Description: linear Depth: simple, single layer Pre-repair: wound explored and irrigated extensively Skin layer closed with: other (glue) Laceration 2: Site: face Size (cm): 0.75 Description: linear Depth: simple, single layer Pre-repair: wound explored and irrigated extensively Skin layer closed with: other (glue) Medical Decision Making 54yo F with hx HTN, T2DM, obesity, MENDEZ, hypothyroid, schwannoma s/p resection, presenting for facial lacerations and syncope. Syncope occured while on the toilet, multiple prior episodes of this in the past. Description of event consistent with reflex/situational/vasovagal syncope, not consistent with hypovolemia, arythrmia, acute coronary syndromes, pulmonary embolism, neurologic causes. New today was 'shaking' witnessed by consistent with convulsive syncope. No post-ictal period and overall not consistent with generalized seizure. Reviewed cardiology report on 30 days Holter monitor from May of this year; Predominant rhythm was sinus. Average heart rate overall was 83. Minimum was 58. Maximum was 141. There were rare ventricular ectopic beats. There were rare atrial premature beats. There was no atrial fibrillation, no high-grade AV block, no pauses greater than 3 seconds. Several self-limited atrial runs occurred. 1 of these was 5 beats in duration and was associated with symptoms. Hypertensive on arrival, vital signs otherwise reassuring. Abrasion to bridge of nose, echymosis to right forehead, and small shallow well approximated lacerations to upper lip; otherwise no traumatic findings on exam. Normal neurologic exam. No benefit to suturing these lip lacs, discussed with patient and elected to place skin glue. -EKG on arrival SR, no ST segment or T wave abnormalities to suggest occlusive MS, LAFB and LVH also present on EKG from october 2022. . Computer calculated QT 410 (QTc 502) suspect erroneous 2/t significant artifact in lead II. On my view in V5 & V6 QT is 380-400 and corrects to 430-460 using Shelby and Fridericia. -Repeat EKG improved quality, NSR, appropriate intervals (computer calculated QT ~390 and QTc ~460). -Labs reviewed as below, CBC reassuring with no mild leukocytosis (nonspecific) and no anemia, CMP with mild hypokalemia at 3.4 (oral replacement ordered), Mg normal, initial troponin 4 (normal) with one hour repeat <4, TSH normal, not . -Shoulder XR independently reviewed; no displaced fracture or dislocation on my view, radiology read below with no acute findings. -CT head and face independently reviewed; no ICH or displaced fractures on my view, radiology read below no acute findings. On reassessment she remains well appearing with reassuring vital signs, feels 'okay, just tired'. Ambulated in department steadily independently without lightheadedness. Major Syncope sore -2, very low risk. Would not admit for further workup. Advised to followup closely with PCP and cardiology; instructed to call both in the morning. Discharged home; discharge instructions and return precautions were reviewed with patient and at bedside who verbalized understanding. All questions were answered and she is in full agreement with the plan. Medical Records Medical records reviewed: Yes I reviewed the patient's medical records. Imaging Data Radiologic Study: Imaging: X-Ray and CT Scan Radiologist's impression: CT IMPRESSION: 1. No acute intracranial findings. 2. No acute fracture XR IMPRESSION: No acute fracture. Lab Data Lab results reviewed: Yes I reviewed the patient's lab results. Labs: Laboratory Tests Range/Units 07/25/24 07/25/24 00:00 01:10 WBC (4.4-10.8) 10^3/uL 11.72 H RBC (3.93-5.22) 10^6/uL 4.14 Hgb (11.2-15.7) g/dL 12.5 Hct (36.0-46.0) % 38.1 MCV (80-95) fL 92 MCH (27.0-33.0) pg 30.2 MCHC (32.0-36.0) % 32.8 RDW (11.7-14.6) % 12.3 Plt Count (130-400) 10^3/uL 250 MPV (8.0-11.0) fL 9.7 Immature Gran % % 0.3 Neutrophils % % 67.7 Lymphocytes % % 23.8 Monocytes % % 5.7 Eosinophils % % 1.9 Basophils % % 0.6 Nucleated RBC % (0.0-0.3) % 0.0 Absolute Neutrophils (1.2-6.7) 10^3/uL 7.93 H Absolute Lymphocytes (1.2-3.4) 10^3/uL 2.79 Absolute Monocytes (0.1-0.8) 10^3/uL 0.67 Absolute Eosinophils (0.0-0.7) 10^3/uL 0.22 Absolute Basophils (0.0-0.2) 10^3/uL 0.07 Sodium (136-145) mmol/L 142 Potassium (3.5-5.1) mmol/L 3.4 L Chloride (98-107) mmol/L 104 Carbon Dioxide (21.0-32.0) mmol/L 31.5 Anion Gap (3-11) mmol/L 6.5 BUN (7-18) mg/dL 18 Creatinine (0.55-1.02) mg/dL 1.1 H Est GFR (CKD-EPI 2020) (mL/min/1.73m2) 60.08 Glucose (74-106) mg/dL 114 H Calcium (8.5-10.1) mg/dL 9.6 Magnesium (1.8-2.4) mg/dL 1.8 Total Bilirubin (0.2-1.0) mg/dL 0.30 AST (15-37) U/L 22 ALT (14-59) U/L 33 Alkaline Phosphatase (46-116) U/L 74 Troponin I (<or=51) ng/L 4 < 4 Total Protein (6.4-8.2) g/dL 7.3 Albumin (3.4-5.0) g/dL 3.6 TSH (0.36-3.74) uIU/mL 0.76 Serum HCG, Qual Negative Quality:SDOH Health Related Social Needs: No Data to Display PFSH All Active Problems (Updated 07/25/24 @ 02:18 by Becki Phelps MD) Situational syncope (Acute) Syncope (Chronic) Angular cheilitis (Acute) Morbid obesity with BMI of 45.0-49.9, adult (Acute) Syncope (Chronic) Essential hypertension (Acute) Type 2 diabetes mellitus without complication, without long-term current use of insulin (Acute) Umbilical hernia without obstruction and without gangrene (Acute) Current moderate episode of major depressive disorder without prior episode (Acute) 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 Surveillance at [facility]. Lateral epicondylitis, right elbow (Acute) Right shoulder pain (Acute) Obstructive sleep apnea hypopnea, severe (Acute ~05/2021) doing well with CPAP Solar lentigo (Acute) managed by Dr. Mackey [place] (actinic keratosis) (Acute) managed by Dr. Mackey Anxiety (Chronic) chronic worry, Hypothyroidism (Chronic) Goiter, nontoxic, multinodular (Acute) Hyperlipemia (Acute) Grief reaction (Chronic) Lumbar radiculopathy (Acute) Medical History (Updated 07/25/24 @ 02:18 by Becki Phelps MD) Family history of breast cancer (10/25/13) mother History of migraine Osteoarthritis of lumbar spine Arthritis Herniation of intervertebral disc between T8 and T9 chronic pain, s/p injections, not helpful Surgical History (Updated 12/01/22 @ 15:20 by Jessica Wise RN) Hx of craniotomy Right, retrosig for tumor resection and fat grafting. 11/10/22 [facility] [place] Neurosurgery. -hb Tarsal tunnel syndrome of right side (~2014) History of section Status post vaginal hysterectomy secondary to childbirth complications Left rotator cuff tear (~11/2018) S/P arthroscopic biceps tenodesis and debridement DOS: 06/14/19 Family History (Updated 04/24/24 @ 15:29 by Lulu Francois MD) Mother , 70 Essential hypertension Personal history of malignant neoplasm Breast Hyperlipidemia Heart disease Stroke High cholesterol Depression Breast cancer Anxiety Adopted Father Diabetes Essential hypertension Hyperlipidemia Asthma Depression Anxiety Heart disease High cholesterol Grandfather Essential hypertension Personal history of malignant neoplasm Lung Heart disease Hyperlipidemia Cancer Heart disease High cholesterol Grandmother Essential hypertension Heart disease Hyperlipidemia Stroke High cholesterol Grandmother Essential hypertension Heart disease High cholesterol Son Age: 30 No problems noted. Daughter Age: 26 Hypothyroidism Social History (Updated 04/26/23 @ 15:11 by Diana Tony) Smoking/Tobacco Use Status: Never Tobacco: How many years used: 0 Second Hand Exposure: Yes Smoking risk assessment performed?: Yes Alcohol Intake: current Alcohol Intake frequency: a few times a month Alcohol type: hard liquor Drug use: Never Substance use type: does not use Counseling given: No Caregiver/Support person: No Household members: spouse and children Housing: house Number of Children: 2 Communication Needs: None Do you need help understanding health information?: Rarely current occupation: works as an administrative assistant receptionist at [employer] Pets and animals: Yes Pets and animals: cat(s) and dog(s) Sexually active: Yes Do you think of yourself as: straight/heterosexual Current gender identity: female What is your relationship status?: How often do you talk on the phone with friends or family?: three or more times per week How often do you get together with friends or relatives?: once per week How often do you attend christianity or mandaeism services?: decline to answer Do you belong to any clubs or organized social groups?: no Panel score (0-1 are the most socially isolated patients): 2 What type of physical activity do you participate in: none Duration: 30-45 minutes/day Frequency: 3-4 times per week Radha/Muslim: Adventism Special radha needs: No Seatbelt use: always Helmet use: Yes Drive intox or ride w/intox driver material handler: No Do you feel safe at home: Yes Do you feel safe in your relationship?: Yes Additional Social history: Enjoys travel
[2024-07-25] VITALS (13 sets, daily range): PULSE 80–88; RESP 18–25; O2SAT 93–96
--- NOTE | 2024-07-25 | DI.RAD_ITS ---
Exam(s) XR SHOULDER RT COMPLETE 2+V EXAM: XR SHOULDER RT COMPLETE 2+V CLINICAL HISTORY: fall. TECHNIQUE: 2D digital imaging was performed. COMPARISON: CR XR SHOULDER RT COMPLETE 2+V from 05/24/2022 FINDINGS: Four views No evidence of fracture or dislocation or abnormal soft tissue calcifications. Subacromial space is not diminished. There are no obvious degenerative changes in the glenohumeral joint. Some degenerat deni changes in the AC joint noted. Bone density normal. No osseous lesions. IMPRESSION: No acute osseous findings in the right shoulder. DATA REPOSITORY: RADIATION DOSE DELIVERED:
[2024-07-25 00:11] LABS: Abs Immature Grans 0.04 10^3/uL (0.0-0.06); Absolute Basophil Count 0.07 10^3/uL (0.0-0.2); Absolute Eosinophil Count 0.22 10^3/uL (0.0-0.7); Absolute Lymphocyte Count 2.79 10^3/uL (1.2-3.4); Absolute Monocyte Count 0.67 10^3/uL (0.1-0.8); Absolute Neutrophil Count 7.93 10^3/uL (1.2-6.7); Basophils % 0.6 %; Eosinophils % 1.9 %; HCT 38.1 % (36.0-46.0); HGB 12.5 g/dL (11.2-15.7); Immature Grans % 0.3 %; Lymphocytes % 23.8 %; MCH 30.2 pg (27.0-33.0); MCHC 32.8 % (32.0-36.0); MCV 92 fL (80-95); MPV 9.7 fL (8.0-11.0); Monocytes % 5.7 %; Neutrophils % 67.7 %; Platelet Count 250 10^3/uL (130-400); RBC 4.14 10^6/uL (3.93-5.22); RDW 12.3 % (11.7-14.6); RDW-SD 41.2 fL; WBC 11.72 10^3/uL (4.4-10.8)
--- NOTE | 2024-07-25 00:15 | DI.CT_ITS ---
Exam(s) CT HEAD FACIAL WO EXAM: CT HEAD FACIAL WO CLINICAL HISTORY: syncope, fall, right maxillary TTP/swollen. TECHNIQUE: Imaging Protocol: Axial computed tomography images with coronal and sagittal reformatted images were created and reviewed COMPARISON: No exams were available for comparison FINDINGS: BRAIN: There is evidence of prior right occipital craniotomy. There are no skull fractures nor fluid in the visualized paranasal sinuses. There is no evidence of intracranial hemorrhage, mass effect, or shift of midline structures. There are no extra-axial fluid collections. The ventricles are not enlarged or shifted and there is no blo od within the ventricular system nor within the basal cisterns. MAXILLOFACIAL CT SCAN: There is no evidence of facial fractures nor fluid in the visualized paranasal sinuses. There is no evidence of orbital blowout fracture. IMPRESSION: No acute intracranial findings on this noninfused CT scan of the brain.There has been prior right occ ipital craniotomy. No evidence of facial bone fractures nor orbital fractures. RADIATION DOSE DELIVERED: 1,523.51mGy.cm Total DLP DATA REPOSITORY: All CT scans at this facility are submitted to the National Radiology Data Registry (NRDR) Dose Index Registry (DIR) with the [employer] [place] [employer] (ACR). RADIATION OPTIMIZATION: All CT scans at this facility use at least one of these dose optimization te chniques: automated exposure control; mA and/or kV adjustment per patient size (includes targeted exa ms where dose is matched to clinical indication); or iterative reconstruction.
[2024-07-25 00:21] LABS: HCG Qual (Serum) Negative
[2024-07-25 00:28] LABS: ALT 33 U/L (14-59); AST 22 U/L (15-37); Albumin 3.6 g/dL (3.4-5.0); Alkaline Phosphatase 74 U/L (46-116); Anion Gap 6.5 mmol/L (3-11); BUN 18 mg/dL (7-18); CO2 31.5 mmol/L (21.0-32.0); CREATININE 1.1 mg/dL (0.55-1.02); Calcium 9.6 mg/dL (8.5-10.1); Chloride 104 mmol/L (98-107); Estimated GFR 60.08 (mL/min/1.73m2); Glucose 114 mg/dL (74-106); Magnesium 1.8 mg/dL (1.8-2.4); Potassium 3.4 mmol/L (3.5-5.1); Sodium 142 mmol/L (136-145); Total Protein 7.3 g/dL (6.4-8.2); Troponin I 4 ng/L (<or=51)
--- NOTE | 2024-07-25 00:45 | RT.EKG_ITS ---
APPROVED REPORT Exam: Resting ECG Reason for Exam: syncope Patient Location: E HR:83 bpm ECG Measurements Heart Rate 83 AXIS IL 197 P 62 QRSd 112 QRS -60 QT 392 T 63 QTc 462 Conclusion Sinus rhythm...normal P axis, V-rate 60- 99 Ventricular premature complex...V complex w/ short R-R interval Probable left atrial enlargement...P >50mS, <-0.10mV V1 Left anterior fascicular block...axis(240,-40), init forces inf Left ventricular hypertrophy...multiple LVH criteria appropriate intervals, no ST segment or T wave abnormalities to suggest occlusive ME
[2024-07-25 00:50] LABS: TSH (W/Ref FT4) 0.76 uIU/mL (0.36-3.74)
[2024-07-25] MEDS: Potassium Chloride Liquid 20 MEQ PKT PO (00:50)
[2024-07-25 01:33] LABS: Troponin I < 4 ng/L (<or=51)
--- NOTE | 2024-07-25 01:44 | DI.VRAD_ITS ---
PROCEDURE INFORMATION: Exam: CT Head Without Contrast Exam date and time: 07/25/2024 12:23 AM Age: 54 years old Clinical indication: Injury; Blunt trauma right cheek bone, maxilla, lip / oral cavity; Syncope, Fall TECHNIQUE: Imaging protocol: Computed tomography of the head without contrast. COMPARISON: MR IAC BRAIN WO/W 06/06/2022 1:18 PM FINDINGS: Brain: No hemorrhage. Unremarkable white matter. No mass effect. Cerebral ventricles: No ventriculomegaly. Paranasal sinuses: Visualized sinuses are unremarkable. No fluid levels. Mastoid air cells: Normally aerated right mastoid air cells. Partial opacification of the inferior left mastoid air cells. Bones: No acute fracture. Prior right occipital craniotomy. Soft tissues: Unremarkable. IMPRESSION: 1. No acute intracranial findings. 2. No acute fracture. PROCEDURE INFORMATION: Exam: CT Maxillofacial Without Contrast Exam date and time: 07/25/2024 12:23 AM Age: 54 years old Clinical indication: Injury; Blunt trauma right cheek bone, maxilla, lip / oral cavity; Syncope, Fall TECHNIQUE: Imaging protocol: Computed tomography of the face without contrast. COMPARISON: MR IAC BRAIN WO/W 06/06/2022 1:18 PM FINDINGS: Paranasal sinuses: No significant disease of the paranasal sinuses. Orbital cavities: Normal globes. No retro-orbital masses. Mastoid air cells: Normally aerated right mastoid air cells. Partial opacification of the inferior left mastoid air cells. Bones: No acute fracture. Soft tissues: No soft tissue hematoma. IMPRESSION: No acute fracture. Dictated and Authenticated by: Nick Zhou MD. Ordering:MAGDIEL Connell MD
--- NOTE | 2024-07-25 01:45 | DI.VRAD_ITS ---
PROCEDURE INFORMATION: Exam: XR Right Shoulder Exam date and time: 07/25/2024 12:19 AM Age: 54 years old Clinical indication: Fall; Blunt trauma / injury right shoulder TECHNIQUE: Imaging protocol: Radiologic exam of the right shoulder. Views: 2 or more views. COMPARISON: CR XR SHOULDER RT COMPLETE 2+V 05/24/2022 1:21 PM FINDINGS: Bones/joints: No acute fracture. No dislocation. No AC joint separation. No focal osseous lesion. Soft tissues: No soft tissue radiopaque foreign body or soft tissue calcification. IMPRESSION: No acute findings. Dictated and Authenticated by: Nick Zhou MD. Ordering:MAGDIEL Connell MD
== END 2024-07-25 02:26 | disposition home or self-care (01) ==
PROVIDERS: Emergency Provider Student in an Organized Health Care Education/Training Program; PCP Family Medicine
DX: R55 Syncope and collapse (principal); I44.4 Left anterior fascicular block; E11.9 Type 2 diabetes mellitus without complications; I10 Essential (primary) hypertension; E78.5 Hyperlipidemia, unspecified; Z79.84 Long term (current) use of oral hypoglycemic drugs
CPT/HCPCS: 36415; 80053; 82962; 93005; 99285; 70450; 70486; 73030; 83735; 84443; 84484; 84703; 85025; 93010; 99284

== ENCOUNTER 2024-08-01 05:12 | Outpatient (CLI) | payer BC, SELFPAY ==
--- NOTE | 2024-08-02 22:05 | PDOC.EEG ---
Neurology EEG EEG: [facility] Department of Neurology EEG REPORT Date of Recordin08/01/24 Interpreting Physician: Dr. Xiao Valverde PCP/Referring Provider: Dr. Lulu Francois Reason for study: Becky Murry is a 54 year-old with recurrent events concerning for syncope vs seizure. Current Medications: Home Medications ?Medication ?Instructions ?Recorded ?Confirmed ?Type Centrum Tablet 1 ea PO DAILY 10/18/12 07/26/24 History fexofenadine 60 mg-pseudoephedrine 1 tab PO BID PRN 10/18/12 07/26/24 History ER 120 mg tablet,ext.release,12 hr (Jennifer-D 12 Hour) omega-3 fatty acids-fish oil 340 2 ea PO HS 10/18/12 07/26/24 History mg-1,000 mg capsule (Fish Oil) red yeast rice 600 mg capsule 600 mg PO DAILY 04/20/22 07/26/24 History metformin 500 mg tablet,extended 500 mg PO DAILY #90 tabs 10/25/23 07/26/24 Rx release 24 hr levothyroxine 125 mcg tablet 125 mcg PO DAILY #90 tabs 12/22/23 07/26/24 Rx bupropion HCl 150 mg 24 hr tablet, 150 mg PO QAM #90 tabs 12/26/23 07/26/24 Rx extended release acetaminophen 650 mg 650 mg PO QHS 04/24/24 07/26/24 History tablet,extended release (Tylenol Arthritis Pain) hydrochlorothiazide 25 mg tablet 25 mg PO DAILY #90 tabs 06/04/24 07/26/24 Rx levothyroxine 100 mcg tablet 100 mcg PO DAILY #90 tabs 06/04/24 07/26/24 Rx mirtazapine 15 mg tablet 15 mg PO QHS #90 tabs 07/23/24 07/26/24 Rx semaglutide 2 mg/dose (8 mg/3 mL) 2 mg subcut QWEEK 07/26/24 07/26/24 History subcutaneous pen injector (Ozempic) METHODS: A 21 channel digitized electroencephalogram was performed in the [facility]physiology Laboratory. The 10/20 international system of electrode placement was used and bipolar and referential electrode montages were recorded. In addition to EEG the patient was monitored for EKG and lateral/vertical eye movements. Activation procedures of photic stimulation and hyperventilation were performed if applicable. Video was used during activation procedures and during events where applicable. The duration of the recording was 30 minutes. DESCRIPTION OF EEG: The patient was noted to be awake and drowsy during the recording. During maximal wakefulness a 9-Hz posterior background rhythm was present which was well-modulated, symmetrical, reactive to eye opening, and of moderate voltage. With eye opening the background activity changed to a low voltage mixture of alpha, beta, and occasional theta range frequencies. Faster frequencies were present in the bilateral anterior head regions. There was a normal anterior-posterior voltage gradient. During drowsiness, there was attenuation of the posterior dominant background rhythm and vertex waves. No stage II sleep was recorded. Activating Procedures: Photic stimulation was performed which produced a symmetrical posterior driving response at various flash frequencies. Hyperventilation was performed with moderate effort and produced no physiological slowing of the background. EKG: EKG revealed normal sinus rhythm. INTERPRETATION: This EEG is normal during the awake and drowsy states as well as during photic stimulation and hyperventilation. PRIOR EEG: none CLINICAL CORRELATION: No focal regions of cerebral dysfunction or epileptiform activity was present. No sleep was recorded during the study which reduces the sensitivity of the exam. If seizure remains a part of the differential, consider a repeat sleep-deprived EEG or overnight ambulatory EEG. Epilepsy remains a clinical diagnosis and a normal EEG does not rule out epilepsy. Clinical correlation is advised. Xiao Valverde MD Date of service: 08/01/24
== END 2024-08-01 05:13 | disposition home or self-care (01) ==
LOC: RT 05:13
PROVIDERS: PCP Family Medicine; Visit Provider Family Medicine
DX: R55 Syncope and collapse (principal)
CPT/HCPCS: 95816

== ENCOUNTER 2024-08-06 02:53 | Outpatient (CLI) | payer BC, SELFPAY ==
--- NOTE | 2024-08-06 14:26 | DI.US_ITS ---
APPROVED REPORT EXAM: Comprehensive 2D, Doppler, and color-flow Echocardiogram Patient Location: [facility] Surveillance Officer: Jane Cisneros RDCS (AE) Indications: Recurrent syncope X 5 months, heart murmur Other Information Study Quality: Adequate. Technically limited study due to body habitus. Conclusion Normal left ventricular wall thickness and chamber size. Ejection fraction is 55 to 60%. Wall motio n is normal Normal right ventricular size and function Both atria are normal in size There is no structural or hemodynamically significant valvular disease Ascending aorta measures 3.59 cm Wall motion Left Ventricle The left ventricle is normal size. The left ventricular systolic function is normal. The left ventric ular ejection fraction is within the normal range. There is normal left ventricular wall thickness. T here is normal LV segmental wall motion. There is no ventricular septal defect visualized. LVEF is 55 -60%. Right Ventricle The right ventricle is normal size. The right ventricular systolic function is normal. Atria The left atrium size is normal. The right atrium size is normal. The interatrial septum is intact wit h no evidence for an atrial septal defect. Aortic Valve The aortic valve is normal in structure. Aortic valve is trileaflet. There is no aortic valvular sten osis. No aortic regurgitation is present. Mitral Valve The mitral valve is normal in structure. No evidence of mitral valve stenosis. Trace to mild mitral r egurgitation. Tricuspid Valve The tricuspid valve is normal in structure. There is no tricuspid valve stenosis. Trace tricuspid reg urgitation. Unable to assess PA pressure. Pulmonic Valve The pulmonary valve is normal in structure. There is no pulmonic valvular stenosis. Trace pulmonic re gurgitation. Great Vessels The aortic root is normal in size. The ascending aorta is mildly dilated. Aortic arch is normal in ca liber. IVC is normal in size and collapses >50% with inspiration. Pericardium There is no pericardial effusion. 2D Dimensions IVSD d PLAX 0.90 cm F: 0.6-1.0 Ao Root d 2.99 cm F: 2.7 - 3.3 LVPW d PLAX 0.92 cm F: 0.6 - 1.0 Ao Asc Diam d 3.59 cm F: 2.3 - 3.1 LVID d PLAX 5.02 cm F: 3.8 - 5.2 LVDs 3.58 cm F: 2.2 - 3.5 LV EF Teichholz 55.2 % FS 28.79 % LV EDV (Teich) 119.6 mL LV ESV (Teich) 53.6 mL M-Mode TAPSE 1.98 cm (M/F) >1.7 Auto EF LV EDV A4C 163.6 mL LV EDV A2C 125.3 mL LV EDV BP 141.0 mL LV ESV A4C 67.8 mL LV ESV A2C 50.9 mL LV ESV BP 58.2 mL LVEF(%) A4C 58.5 % LVEF(%) A2C 59.4 % LVEF(%) BP 58.7 % LV SV A4C 95.8 ml LV SV A2C 74.4 ml LV SV BP 82.7 ml LV CO A4C 7.2 L/min LV CO A2C 5.6 L/min LV CO BP 6.4 L/min HR A4C 75.32 BPM HR A2C 75.16 BPM LV EDV Index (BP) LA Volume LA Length A4C 4.3 cm LA Length A2C 5.4 cm LA Area A4C s 13.90 cm2 LA Area A2C s 20.09 cm2 LA Vol A4C A-L 37.88 mL LA Vol A2C A-L 63.71 mL LA Vol Biplane A-L 54.7 mL LA Vol/BSA A4C A-L LA Vol/BSA A2C A-L LA Vol/BSA BP A-L 23.7 mL/m2 LA Vol A4C MOD 35.9 mL LA Vol A2C MOD 60.6 mL LA Vol BP MOD 51.9 mL RA Volume RA Area A4C 8.9 cm2 RA ESV A4C (A-L) 18.9mL RA Vol/BSA A4C A-L RA Length A4C 3.6 cm RA ESV A4C (MOD) 17.6mL LV Diastology MV E' medial 0.087 (>0.07 m/s) MV E Vmax 0.96 (0.4-1.3 m/s) MV E/E' MED 11.14 (<14) MV A Vmax 0.75 (0.4-1.3 m/s) MV E' lateral 0.112 (>0.1 m/s) E/A Ratio 1.3 MV E/E' LAT 8.64 (<14) MV E' Average 0.099 m/s MV E/E'(average) 9.73 Aortic Valve AoV Vmax 1.29 m/s LVOT Vmax 1.17 m/s AoV Peak Grad 6.6 mmHg LVOT Peak Grad 5.5 mmHg AoV Area (Vmax) 2.97 cm2 LVOT VTI 0.234 m AoV VTI 0.296 m LVOT Mean Grad 3.2 mmHg AoV Mean Kaleb. 0.92 m/s LVOT SV 76.74 mL AoV Mean Grad 3.8 mmHg LVOT Diam s 2.00 cm AoV Area (VTI) 2.59 cm2 AV Regurg Peak Gr. 6.64 mmHg Velocity Ratio 0.91 Mitral Valve MV DT 198 (160-240 msec) MV Vmax TIPS 0.96 m/s MV Mean Grad 1.7 (<2mmHg) MV VTI 0.283 m Pulmonary Valve PV Vmax 0.84 (0.5-1.5 m/s) RVOT Vmax 0.67 m/s PV Peak Grad 2.8 mmHg RVOT Peak Gr. 1.8 mmHg PV Mean Kaleb 0.59 m/s RVOT VTI 0.157 m PV Mean Grad 1.6 mmHg RVOT Mean Gr. 1.1 mmHg Tricuspid Valve RA Pressure 3.00 mmHg TV S' 0.15 m/s
== END 2024-08-06 03:13 ==
LOC: DI 02:54
PROVIDERS: PCP Family Medicine; Visit Provider Family Medicine
DX: R01.1 Cardiac murmur, unspecified (principal); R55 Syncope and collapse
CPT/HCPCS: 93306

== ENCOUNTER 2024-12-05 01:42 | Outpatient (CLI) | payer BC, SELFPAY ==
[2024-12-05 10:11] LABS: COMMENT (LAB VIEW ONLY) 36.96 mg/dL; Microalb ug/mg Crea 15.7 ug/mg Cr
[2024-12-05 10:25] LABS: ALT 28 U/L (14-59); AST 18 U/L (15-37); Albumin 4.1 g/dL (3.4-5.0); Alkaline Phosphatase 76 U/L (46-116); Anion Gap 5.8 mmol/L (3-11); BUN 15 mg/dL (7-18); Bilirubin, Total 0.5 mg/dL (0.2-1.0); CO2 31.2 mmol/L (21.0-32.0); CREATININE 0.9 mg/dL (0.55-1.02); Calcium 9.9 mg/dL (8.5-10.1); Calculated LDL 126 mg/dL (<100); Chloride 99 mmol/L (98-107); Cholesterol 216 mg/dL (<200); Estimated GFR 76.44 (mL/min/1.73m2); Glucose 94 mg/dL (74-106); HDL Cholesterol 51 mg/dL (>or=50); Potassium 3.8 mmol/L (3.5-5.1); Sodium 136 mmol/L (136-145); TSH (W/Ref FT4) 0.21 uIU/mL (0.36-3.74); Triglyceride 195 mg/dL (<150)
[2024-12-05 10:52] LABS: FREE T4 1.72 ng/dL (0.76-1.46)
== END 2024-12-05 01:43 | disposition home or self-care (01) ==
PROVIDERS: PCP Family Medicine; Visit Provider Family Medicine
DX: E03.9 Hypothyroidism, unspecified (principal); E11.9 Type 2 diabetes mellitus without complications
CPT/HCPCS: 36415; 80053; 80061; 82043; 82570; 84439; 84443

== ENCOUNTER 2024-12-26 10:22 | Outpatient (CLI) | payer BC, SELFPAY ==
--- NOTE | 2024-12-26 09:44 | DI.RAD_ITS ---
Exam(s) XR KNEE LT 4V AP,LAT,NANY,PAT EXAM: XR KNEE LT 4V AP,LAT,NANY,PAT CLINICAL HISTORY: LEFT KNEE PAIN. TECHNIQUE: 2D digital imaging was performed of the left knee. Four images were obtained. Merchant, AP, lateral and PA tunnel views were obtained. COMPARISON: There are no priors for comparison. FINDINGS: BONES: No acute fracture is present. No bony destructive lesion is seen. There is an enthesophyte at the superior patella. JOINTS: There is mild narrowing of the medial femoral tibial joint. The joint spaces are otherwise w ell maintained. No joint effusion is seen. No loose body. SOFT TISSUE: Normal. IMPRESSION: Mild narrowing in the medial femoral tibial joint. DATA REPOSITORY: RADIATION DOSE DELIVERED:
== END 2024-12-26 10:23 | disposition home or self-care (01) ==
LOC: DIORS 10:22
PROVIDERS: PCP Family Medicine; Referring Provider Family Medicine; Visit Provider Student in an Organized Health Care Education/Training Program
DX: M25.562 Pain in left knee (principal); M17.12 Unilateral primary osteoarthritis, left knee
CPT/HCPCS: 73564

== ENCOUNTER 2025-03-20 16:36 | Outpatient (CLI) | payer BC, SELFPAY ==
--- NOTE | 2025-03-20 07:30 | DI.MRI_ITS ---
Exam(s) MR LOWER JOINT LT WO EXAM: MR LOWER JOINT LT WO CLINICAL HISTORY: PAIN,INTERNAL DERANGEMENT LT KNEE,M23.92 TECHNIQUE: Multiplanar multisequence MRI of the knee was performed. COMPARISON: CR,XR XR SHOULDER RT COMPLETE 2+V from 07/25/2024 CR XR KNEE LT 4V AP,LAT,NANY,PAT from 12/26/2024 FINDINGS: EFFUSION: There is a minimal amount of increased joint fluid. There is no large joint effusion and there is no Pradhan cyst in the popliteal fossa. MARROW:There is no evidence of fracture, bone contusion, nor osteochondral defects.. There are no significant osseous lesions. Tiny benign bone island is noted in the medial femoral condyle. PATELLOFEMORAL COMPARTMENT: The quadriceps tendon is intact. There is a small enthesophyte on the anterosuperior aspect of the patella-quadriceps insertion site. However, there is no abnormal signal at this level. The patellar ligament is intact. There is some deep subcutaneous edema anterior to the patellar ligament. There is mild thinning of the retropatellar cartilage over the medial facet and mild intraosseous edema in the medial patella at this level. There is no osteochondral defect.There is no intraosseous signal to suggest recent patellar dislocation. There are no patellar retinacular tears. CRUCIATE LIGAMENTS: The anterior cruciate ligament is intact.The posterior cruciate ligament is intact. MEDIAL COMPARTMENT/MEDIAL MENISCUS: There is no evidence of tear of the medial meniscus.However, there is some thinning of the articular cartilage over the main weight-bearing surface of the medial femoral condyle, not associated with subarticular edema in the medial condyle nor evidence of osteochondral defect. There are tiny marginal osteophytes off the inner and outer aspect of the medial femoral condyle. There is no abnormal signal in the subjacent tibial plateau.. MEDIAL COLLATERAL LIGAMENT: There is edema in the subcutaneous fat lateral to the medial collateral ligament but there is no evidence of significant tear of this structure. Also no evidence of significant meniscocapsular separation. LATERAL COMPARTMENT/LATERAL MENISCUS: There is no evidence of lateral meniscal tear.There are no chondral defects, osteochondral defects, subarticular marrow edema, nor osteophytes evident. ILIOTIBIAL BAND: Intact LATERAL COLLATERAL LIGAMENT COMPLEX: The fibular collateral ligament is intact. The biceps femoris tendon is intact.Popliteus muscle and tendon are intact. IMPRESSION: 1. There is moderate articular cartilage thinning over the main weight-bearing surface of the medial femoral condyle, not associated with subjacent subarticular bone edema in the medial condyle nor evidence of osteochondral defect. There is also no evidence of medial meniscal tear. 2. There is mild-moderate cartilage thinning in the most medial aspect of the retropatellar cartilage medial facet area, this is so seated with very mild subarticular edema in the medial aspect of the patella. There is no osteochondral defect at this level. 3. The lateral compartment of the knee appears unremarkable 4. There are no meniscal tears nor cruciate ligament tears nor collateral ligament tears. Iliotibial band also appears unremarkable. 5. There is a small amount of increased joint fluid. There are no loose intra- articular bodies evident. DATA REPOSITORY:
== END 2025-03-20 16:56 ==
LOC: DI 16:36
PROVIDERS: PCP Family Medicine; Visit Provider Student in an Organized Health Care Education/Training Program
DX: M23.92 Unspecified internal derangement of left knee (principal)
CPT/HCPCS: 73721

== ENCOUNTER 2025-03-31 07:35 | Outpatient (CLI) | payer BC, SELFPAY ==
[2025-03-31 16:26] LABS: TSH (W/Ref FT4) 0.48 uIU/mL (0.36-3.74)
== END 2025-03-31 07:36 | disposition home or self-care (01) ==
LOC: LBO 04-01 07:35
PROVIDERS: PCP Family Medicine; Visit Provider Family Medicine
DX: E03.9 Hypothyroidism, unspecified (principal)
CPT/HCPCS: 36415; 84443

== ENCOUNTER 2025-04-06 09:20 | Emergency (ER) | payer BC, SELFPAY ==
[2025-04-06 09:42] VITALS: BP 115/76; PULSE 102; RESP 12; TEMP 36.7; O2SAT 96
--- NOTE | 2025-04-06 10:31 | NUR.NOTE ---
Animal bite report emailed to [email or web address] for follow up. Message left on health officer phone regarding the report. Nursing Note:
--- NOTE | 2025-04-06 10:32 | ED.GENADUL_ITS ---
Discharge Plan Disposition Patient Disposition: Home Condition: Stable Discharge Details Clinical Impression: Cat bite of forearm Primary Care Provider: Lulu Francois ED Provider: Xiao Brown Home Meds and New Rx's Prescriptions: New doxycycline monohydrate 100 mg tablet 100 mg PO BID 13 Days Qty: 26 0RF No Action red yeast rice 600 mg capsule 600 mg PO DAILY Rx Instructions: give with meal/snack acetaminophen [Tylenol Arthritis Pain] 650 mg tablet extended release 650 mg PO QHS fexofenadine-pseudoephedrine [Jennifer-D 12 Hour] 1 EACH tablet extended release 12 hr 1 tab PO BID PRN Fish Oil 1 EACH capsule 2 ea PO HS CENTRUM TABLET 1 EACH tablet 1 ea PO DAILY hydrochlorothiazide 25 mg tablet 25 mg PO DAILY Qty: 90 3RF levothyroxine 200 mcg tablet 200 mcg PO DAILY Qty: 90 3RF metformin 500 mg tablet extended release 24 hr 500 mg PO DAILY Qty: 90 3RF bupropion HCl 150 mg tablet extended release 24 hr 150 mg PO QAM Qty: 90 3RF zolpidem 5 mg tablet 5 mg PO QHS PRN (Reason: sleep) Qty: 30 3RF Ozempic 2 mg/dose (8 mg/3 mL) pen injector 2 mg subcut QWEEK Qty: 3 5RF Discharge Instructions Instructions: Animal Bites ED Additional Instructions: You were seen in the emergency department today for evaluation of a cat bite. In our department a full physical examination performed, and will need to be started on antibiotics. You have a allergy to penicillins and amoxicillin and so will be started on doxycycline, which you will take twice a day for the next 14 days. Please take all this medication until it is gone, even if you start to feel better. Keep the area clean and dry, and please follow-up with your primary care provider in the next few days to discuss this visit and any symptoms that change, worsen, or persist. Thank you for allowing us to be part of your care. Discharge Data Discharge Date/Time-TO BE ENTERED AT DEPARTURE: 04/06/25 10:53 HPI General Mode of arrival: ambulatory . Date/Time Provider Initiated Documentation: 04/06/25 09:30 . Limitations to Documentation: no limitations . Information obtained by: patient and old records reviewed . HPI Narrative: This is a 55-year-old female patient with a past medical history significant for hypertension, diabetes, MENDEZ, hypothyroidism, presenting for evaluation of a cat bite. The patient reports that yesterday she was grooming her father's cat, she typically wears gloves to avoid being bitten, but was bit on the left inner aspect of her forearm. The cat is fully vaccinated, and she has no concern for rabies exposure. The patient states that she cleaned the area thoroughly, but noted some spreading redness this morning prompting her to seek care. She has had a cat bite in the past and knows that it requires antibiotics which is her primary reason for seeking care today. She did not sustain other injury, the cat did not have any broken teeth after the event, she has not had fevers or chills, denies lymphadenopathy. Reports an allergy to penicillin and amoxicillin, endorsing a rash Related Data Home Medications ?Medication ?Instructions ?Recorded ?Confirmed Centrum Tablet 1 ea PO DAILY 10/18/1204/06 fexofenadine 60 mg-pseudoephedrine 1 tab PO BID PRN 04/06/25 ER 120 mg tablet,ext.release,12 hr (Jennifer-D 12 Hour) omega-3 fatty acids-fish oil 340 2 ea PO HS 10/18/12 0 04/06/25 mg-1,000 mg capsule (Fish Oil) red yeast rice 600 mg capsule 600 mg PO DAILY 04/20/22 04/06/25 acetaminophen 650 mg 650 mg PO QHS 04/24/2404/06 tablet,extended release (Tylenol Arthritis Pain) hydrochlorothiazide 25 mg tablet 25 mg PO DAILY #90 ta bs 06/04/24 04/06/25 levothyroxine 200 mcg tablet 200 mcg PO DAILY #90 tabs 12/05/24 04/06/25 metformin 500 mg tablet,extended 500 mg PO DAILY #90 t abs 01/13/25 04/06/25 release 24 hr bupropion HCl 150 mg 24 hr tablet, 150 mg PO QAM #90 t abs 03/17/25 04/06/25 extended release zolpidem 5 mg tablet 5 mg PO QHS PRN sleep #30 ta bs 03/28/25 04/06/25 semaglutide 2 mg/dose (8 mg/3 mL) 2 mg (0.75 mL) subcu t QWEEK #3 mL 03/31/25 04/06/25 subcutaneous pen injector (Ozempic) doxycycline monohydrate 100 mg 100 mg PO BID 13 days # 26 tabs 04/06/25 tablet Previous Rx's ?Medication ?Instructions ?Recorded hydrochlorothiazide 25 mg tablet 25 mg PO DAILY #90 ta bs 06/04/24 levothyroxine 200 mcg tablet 200 mcg PO DAILY #90 tabs 12/05/24 metformin 500 mg tablet,extended 500 mg PO DAILY #90 t abs 01/13/25 release 24 hr bupropion HCl 150 mg 24 hr tablet, 150 mg PO QAM #90 t abs 03/17/25 extended release zolpidem 5 mg tablet 5 mg PO QHS PRN sleep #30 ta bs 03/28/25 semaglutide 2 mg/dose (8 mg/3 mL) 2 mg (0.75 mL) subcu t QWEEK #3 mL 03/31/25 subcutaneous pen injector (Ozempic) doxycycline monohydrate 100 mg 100 mg PO BID 13 days # 26 tabs 04/06/25 tablet Allergies Allergy/AdvReac Type Severity Reaction Status Date / Time Penicillins Allergy Intermediate Hives Verified 04/06/25 09:44 amoxicillin Allergy rash Verified 04/06/25 09:44 amitriptyline AdvReac Mild nightmares Verified 04/06/25 09:44 General Stated Complaint: AnimalBite LEN: 4 Exam Narrative Exam Narrative: Gen: Awake and alert, in no apparent distress HEENT: Non-icteric sclera Neck: Supple Lungs: No apparent respiratory distress, normal respiratory effort. CV: Appears well perfused, strong distal pulses Abdomen: Non-distended MSK: Moves 4 extremities without apparent limitation in ROM. The patient has a puncture wound to the inner aspect of the proximal left forearm, with about 4 cm of surrounding redness and very mild induration. No palpable fluctuance or foreign bodies, no axillary lymphadenopathy on the affected left side. Skin: Visualized skin without rashes, cyanosis. Neuro: Normal Gait, no obvious focal deficits or facial asymmetry. Speaks in full, clear sentences. Psych: Appropriate for situation. Course Vital Signs Vital signs: Vital Signs Temperature 36.7 C 04/06/25 09:42 Pulse 102 H 04/06/25 09:42 Respiratory Rate 12 04/06/25 09:42 Blood Pressure 115/76 04/06/25 09:42 Pulse Oximetry 96 04/06/25 09:42 Temperature 36.7 C 04/06/25 09:42 Temperature Source Oral 04/06/25 09:42 Pulse 102 H 04/06/25 09:42 Respiratory Rate 12 04/06/25 09:42 Blood Pressure 115/76 04/06/25 09:42 Blood Pressure Position Sitting 04/06/25 09:42 Pulse Oximetry 96 04/06/25 09:42 Oxygen Delivery Method Room Air 04/06/25 09:42 Oxygen Flow Rate 0 04/06/25 09:42 Medical Decision Making This is a 55-year-old female patient presenting for evaluation after cat bite. Differential includes but is not limited to puncture wound, skin soft tissue infection such as cellulitis, no physical exam evidence concerning for abscess. I do not note any extension such as lymphadenopathy to suggest cat scratch disease, and the patient does not have fever, chills, or systemic symptoms to suggest sepsis or bacteremia. Given the penicillin allergy we will start patient on doxycycline, 100 mg twice daily for 14 days. I did college and career counselor the patient on return precautions, including worsening redness, swelling, streaking up the arm, fever, and she will be followed up by her primary care provider for reassessment. At this time I do not see indication to proceed with advanced imaging or laboratory studies. At this time, the patient has had a full medical evaluation and is safe for discharge to home. They are hemodynamically stable, ambulatory, and tolerating PO. They are understanding of the follow-up plan and return precautions. They left our facility without incident. Xiao Brown MD [facility] All Active Problems (Updated 04/06/25 @ 10:32 by Xiao Brown MD) Cat bite of forearm (Acute) Pes anserinus bursitis of left knee (Acute) Internal derangement of left knee (Acute) DEPO MEDROL 12/26/24 Left knee pain (Acute) Angular cheilitis (Acute) Morbid obesity with BMI of 45.0-49.9, adult (Acute) Essential hypertension (Acute) Type 2 diabetes mellitus without complication, without long-term current use of insulin (Acute) Umbilical hernia without obstruction and without gangrene (Acute) Current moderate episode of major depressive disorder without prior episode (Acute) 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 Surveillance at [facility]. Lateral epicondylitis, right elbow (Acute) Right shoulder pain (Acute) Obstructive sleep apnea hypopnea, severe (Acute ~05/2021) doing well with CPAP Solar lentigo (Acute) managed by Dr. Mackey [place] (actinic keratosis) (Acute) managed by Dr. 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 [place] [facility] [place] [facility] [place] Tarsal tunnel syndrome of right side (~2014) History of section Status post vaginal hysterectomy secondary to childbirth complications Left rotator cuff tear (~11/2018) S/P arthroscopic biceps tenodesis and debridement DOS: 06/14/19 Family History Mother , 70 Essential hypertension Personal history of malignant neoplasm Breast Hyperlipidemia Heart disease Stroke High cholesterol Depression Breast cancer Anxiety Adopted Father Diabetes Essential hypertension Hyperlipidemia Asthma Depression Anxiety Heart disease High cholesterol Grandfather Essential hypertension Personal history of malignant neoplasm Lung Heart disease Hyperlipidemia Cancer Heart disease High cholesterol Grandmother Essential hypertension Heart disease Hyperlipidemia Stroke High cholesterol Grandmother Essential hypertension Heart disease High cholesterol Son Age: 30 No problems noted. Daughter Age: 26 Hypothyroidism Social History Smoking/Tobacco Use Status: Never Tobacco: How many years used: 0 Second Hand Exposure: Yes Smoking risk assessment performed?: Yes Alcohol Intake: current Alcohol Intake frequency: a few times a month Alcohol type: hard liquor Drug use: Never Substance use type: does not use Counseling given: No Caregiver/Support person: No Household members: spouse and children Housing: house Number of Children: 2 Communication Needs: None Do you need help understanding health information?: Rarely current occupation: works as an administrative project coordinator at [email or web address] Pets and animals: Yes Pets and animals: cat(s) and dog(s) Sexually active: Yes Do you think of yourself as: straight/heterosexual Current gender identity: female What is your relationship status?: How often do you talk on the phone with friends or family?: three or more times per week How often do you get together with friends or relatives?: once per week How often do you attend holiness or congregational services?: decline to answer Do you belong to any clubs or organized social groups?: no Panel score (0-1 are the most socially isolated patients): 2 What type of physical activity do you participate in: none Duration: 30-45 minutes/day Frequency: 3-4 times per week Radha/Methodist: Confucianist Special radha needs: No Seatbelt use: always Helmet use: Yes Drive intox or ride w/intox screw driver operator: No Do you feel safe at home: Yes Do you feel safe in your relationship?: Yes Additional Social history: Enjoys travel
[2025-04-06 10:51] VITALS: BP 118/68; PULSE 94; RESP 14; TEMP 36.7; O2SAT 98
== END 2025-04-06 10:53 | disposition home or self-care (01) ==
PROVIDERS: Emergency Provider Emergency Medicine; PCP Family Medicine
DX: S51.852A Open bite of left forearm, initial encounter (principal); W55.01XA Bitten by cat, initial encounter
CPT/HCPCS: 99283 ×2

== ENCOUNTER → 2025-06-23 03:45 | Outpatient (CLI) | payer BC, SELFPAY ==
--- NOTE | 2025-06-23 12:59 | DI.MAMMO_ITS ---
Exam(s) MAMMO SCREENING EXAM: MAMMO SCREENING CLINICAL HISTORY: screening,z12.39. TECHNIQUE: Bilateral full field digital CC and MLO mammographic images were obtained with 3D tomosynthesis and utilizing computer aided detection (CAD). COMPARISON: Prior mammograms were reviewed. FINDINGS: There has been no significant change in the appearance and distribution of the fibroglandular tissue. There are no new spiculated masses nor malignant appearing microcalcification groups. There is no significant architectural distortion nor skin thickening-retraction. IMPRESSION: No radiographic evidence of malignancy. BI-RADS Category 1 - Negative Breast Density - Category B - There are scattered areas of fibroglandular density. Breast density Category C or D implies that the patient has dense breast tissue. Dense breast tissue can make it harder to find cancer on a mammogram. Dense breast tissue is also associated with an increased risk of breast cancer. This information about the result of the mammogram report was provided to the patient to raise their awareness. Use this report when you speak with the patient about their risks for breast cancer, which includes their family history. At that time, you may recommend additional screening tests (Ultrasound or MRI) as these tests may add significant information. A negative radiographic report should not delay biopsy if a dominant or clinically suspicious mass is present. Up to ten percent of cancers are not identified on mammography. A negative report may reinforce clinical impression. Adenosis and dense breasts may obscure an underlying neoplasm. False positive reports average 6 to 10%. Patient will receive a letter notifying them of these results.
== END ==
PROVIDERS: PCP Family Medicine; Visit Provider Family Medicine
DX: Z12.31 Encounter for screening mammogram for malignant neoplasm of breast (principal); R92.323 Mammographic fibroglandular density, bilateral breasts
CPT/HCPCS: 77063; 77067